=== PATIENT | male | born 1940 | race Caucasian/White ===

== ENCOUNTER → 2016-08-05 | Day surgery (SDC) | payer MEDICARE, OTHER ==
[~2016-08-05] MED LIST: ADVAIR 250/5028 PUFF INH; AMLODIPINE BESY PO; ASPIRIN 81MG TA81 MG PO; BENAZEPRIL10 MG PO; CELEBREX 200MG200 MG PO; CLINDAMYCIN HC300 MG PO; CLONAZEPAM 1MG T1 MG PO; CLOPIDOGREL75 M2; CRESTOR40 MG PO; DOXYCYCLINE HY100 MG PO; EPLERENONE25 MG PO; KEFLEX 500MG.500 MG PO; KOMBIGLYZE XR 11 TER PO; LEVAQUIN 750 M750 MG PO; LIPITOR80 MG PO; OMEPRAZOLE20 MG PO; PIOGLITAZONE HC1 TAB PO; PLAVIX75 MG PO; SOTALOL HCL80 MG PO; TIKOSYN0.25 MG PO; TORSEMIDE20 MG PO; XARELTO20 MG PO
[2016-08-05 09:30] VITALS: BP 138/70
== END ==
LOC: SDC 08:56
DX: Z53.09 Procedure and treatment not carried out because of other contraindication (principal); R10.9 Unspecified abdominal pain; E11.9 Type 2 diabetes mellitus without complications; R05 Cough

== ENCOUNTER 2016-10-07 10:57 | Day surgery (SDC) | payer MEDICARE, OTHER ==
[~2016-10-07] VITALS: Ht 177.8 cm; Wt 133.8 kg
[~2016-10-07 10:57] MED LIST changes: +DOFETILIDE125 MCG PO; -LIPITOR80 MG PO; +METFORMIN HCL1000 MG PO; -PIOGLITAZONE HC1 TAB PO; -TIKOSYN0.25 MG PO; +XARELTO15 MG PO; -XARELTO20 MG PO
--- NOTE | 2016-10-07 12:40 | Operative Note ---
Upper GI Endoscopy Procedure date: 10/07/16 Date of : 36 Procedure:Upper GI Endoscopy Esophagogastroduodenoscopy with cold biopsies Indications: Mr. Collier is a 76-year-old gentleman who is here for diagnostic panendoscopy. The patient does have iron deficiency anemia. He has pancytopenia. He has received Vee heme. He has had some dark stools but reports no bright red rectal bleeding or hematochezia. The patient has had long-standing dyspepsia. He is on Xarelto. He had prior cholecystectomy from gallstones in December 2012. He had an EGD in May 2015 showing linear gastritis. He had a colonoscopy in May 2015 showing a diminutive polyp and diverticulosis. Diagnostic panendoscopy is performed once again. Performing Provider: Dunia Garner MD Referring Provider: Elver Whaley M.D./Dr. Parisa Clemente Sedation: MAC anesthesia Procedure: Prior to the procedure, a history and physical exam was performed, and patients medications and allergies were reviewed. The risks and benefits of the procedure and the sedation options and risks were discussed with the patient. All questions were answered and informed consent was obtained. The patient was brought to the procedure room. Patient identification and proposed procedure were verified by the physician and the nurse. The patient was placed in a left lateral decubitus position and the scope was passed under direct vision. Throughout the procedure, the patient's blood pressure, pulse, and oxygen saturations were monitored continuously. The endoscope was introduced through the mouth, and advanced to the second part of duodenum. The upper GI endoscopy was accomplished without difficulty. The patient tolerated the procedure well. Findings: The scope was passed directly into the upper esophagus and advanced to the third portion of the duodenum. The post bulbar duodenum and duodenal bulb were normal with normal mucosa and conniventes. The scope was withdrawn through a normal duodenal bulb and pylorus into the stomach. There was mild linear erythema of the antrum. There was some mild chronic gastritis. The remainder of the antrum, body and fundus of the stomach were grossly normal. Upon retroflexion there was a very small sliding hiatal hernia. 2 biopsies were taken in the antrum and along the lesser curvature for histology and/or CLOtest. The scope was then withdrawn into the esophagus. There was no evidence of reflux esophagitis or Love's. There is no esophageal varices. The remainder of the esophageal mucosa was normal. Immediate complications: None EBL (ml): 0 Impression: 1. Nonerosive gastroesophageal reflux disease with mild esophageal dysmotility and very small sliding hiatal hernia 2. Mild linear reactive gastritis Recommendations: I will follow-up the biopsies. There is no source for his iron deficiency anemia. I will proceed with colonoscopy. The colonoscopy is negative for source of bleeding, I would recommend Hemoccult testing. I do feel that his iron deficiency anemia is in part related to his anticoagulation. at [id number]
--- NOTE | 2016-10-07 12:41 | Operative Note ---
Colonoscopy ([facility]) Procedure date: 10/07/16 Date of : 36 Procedure:Colonoscopy Colonoscopy with cold snare polypectomy Indications: Mr. Collier is a 76-year-old gentleman who is here for diagnostic panendoscopy. The patient does have iron deficiency anemia. He has pancytopenia. He has received Vee heme. He has had some dark stools but reports no bright red rectal bleeding or hematochezia. The patient has had long-standing dyspepsia. He is on Xarelto. He had prior cholecystectomy from gallstones in December 2012. He had an EGD in May 2015 showing linear gastritis. He had a colonoscopy in May 2015 showing a diminutive polyp and diverticulosis. Diagnostic panendoscopy is performed once again. Performing Provider: Main Garner MD Referrring Provider: Elver Whaley M.D./Dr. Mccauley Sedation: MAC sedation Procedure: Prior to the procedure, a history and physical exam was performed, and patient medications and allergies were reviewed. The risks and benefits of the procedure and the sedation options and risks were discussed with the patient. All questions were answered and informed consent was obtained. Patient identification and proposed procedure were verified by the physician and the nurse. The patient was placed in a left lateral decubitus position. Throughout the procedure, the patient's blood pressure, pulse, and oxygen saturations were monitored continuously. Findings: On digital rectal examination there was normal rectal tone. There were no external hemorrhoids. The colonoscope was introduced through the anal canal to the rectum and advanced to the cecum. The ileocecal valve and appendiceal orifice were identified. The scope was advanced a short distance into the ileum which appeared grossly normal. The scope was then withdrawn into the colon. The cecum, ascending and transverse colon and mucosa were grossly normal. There was a single 6-7 mm polyp in the descending colon removed via cold snare polypectomy. There were scattered diverticuli throughout the descending and sigmoid colon (LEFT colon). The rectum itself was normal. Upon retroflexion within the rectum there were grade 1-2 internal hemorrhoids. Impressions: 1. Descending colon polyp 2. Left-sided diverticulosis 3. Grade 1-2 internal hemorrhoids Recommendations: I will follow up the polyp histology. I'm not convinced that the patient will require any further surveillance colonoscopy. There was again no source for the patient's iron deficiency anemia. I will obtain Hemoccult testing. If the patient is Hemoccult positive, would consider video capsule enteroscopy. Complications: None EBL (ml): 0 at [id number]
[2016-10-07 15:54] VITALS: BP 114/60
--- NOTE | 2016-10-07 15:55 | Anesthesia Record ---
Anesthesia Record Part II Discharge time: 1235 Destination: Same day surgery PACU nurse assessment review? Yes Patient is: Stable Anesthesia complications? No at 1551
--- NOTE | 2016-10-07 15:55 | Anesthesia Record ---
Anesthesia Record Part I Total IV fluids: 400 EBL (ml): 0 Urine Output: 0 B/P: 114/60 % SaO2: 92 Pulse: 69 Resps: 16 Temp: 98.3 Patient is: Drowsy, Stable Stable to PACU at: 1235 (sds) at 1554
[2016-10-15] MEDS ORDERED: FLONASE 50 MCG16 GM (09:03)
[2016-10-15] MEDS ORDERED: LORATADINE 10MG10 M1 PO (09:04)
[2016-10-15] MEDS ORDERED: TERAZOSIN HCL1 MG PO (09:05)
[2016-10-15] MEDS ORDERED: BYSTOLIC2.5 MG PO (09:11)
[2016-10-15] MEDS ORDERED: ISOSORBIDE MON120 MG PO (09:12)
[2016-10-15] MEDS ORDERED: VITAMIN D1000 IU PO (09:36)
[2016-10-15] MEDS ORDERED: LEADER NATURA500 MCG PO (09:38)
[2016-10-15] MEDS ORDERED: FERROUS GLUCON324 M1 PO (09:39)
[2016-10-15] MEDS ORDERED: NITROGLYCERIN0.4 MG SL (09:40)
[2016-10-15] MEDS ORDERED: OXYGEN2 IH (09:52)
[2016-10-15] MEDS ORDERED: BREO ELLIPTA1 POW IH (09:52)
[2016-10-15] MEDS ORDERED: CLARITIN LIQUI-10 MG PO (09:54)
[2016-10-15] MEDS ORDERED: FLUTICASONE 50M16 GM (09:58)
[2016-10-15] MEDS ORDERED: PIOGLITAZONE HY PO (10:57)
[2016-10-18] MEDS ORDERED: SPIRONOLACTONE25 MG NG (17:42)
[2016-10-18] MEDS ORDERED: TORSEMIDE 20MG20 MG PO (17:42)
[2016-10-18] MEDS ORDERED: METFOMIN HYDRO850 MG PO (17:43)
== END 2016-10-07 13:50 | disposition home or self-care (01) ==
LOC: SDC 10:57
PROVIDERS: Internal Medicine Gastroenterology
PROC: 0DB68ZX Excision of Stomach, Via Natural or Artificial Opening Endoscopic, Diagnostic (ICD-10-PCS; 2016-10-07)
PROC: 0DB78ZX Excision of Stomach, Pylorus, Via Natural or Artificial Opening Endoscopic, Diagnostic (ICD-10-PCS; 2016-10-07)
PROC: 0DBM8ZX Excision of Descending Colon, Via Natural or Artificial Opening Endoscopic, Diagnostic (ICD-10-PCS; principal; 2016-10-07 12:00)
DX: K63.5 Polyp of colon (principal); K57.30 Diverticulosis of large intestine without perforation or abscess without bleeding; K64.1 Second degree hemorrhoids; K64.0 First degree hemorrhoids; K21.9 Gastro-esophageal reflux disease without esophagitis; K44.9 Diaphragmatic hernia without obstruction or gangrene; K22.4 Dyskinesia of esophagus; K29.60 Other gastritis without bleeding; E11.9 Type 2 diabetes mellitus without complications

== ENCOUNTER → 2017-03-10 | Outpatient (CLI) | payer MEDICARE, OTHER ==
[~2017-03-10] MED LIST changes: +BREO ELLIPTA1 POW IH; +BYSTOLIC2.5 MG PO; +CLARITIN LIQUI-10 MG PO; +FERROUS GLUCON324 M1 PO; +FLONASE 50 MCG16 GM; +FLUTICASONE 50M16 GM; +ISOSORBIDE MON120 MG PO; +LEADER NATURA500 MCG PO; +LORATADINE 10MG10 M1 PO; +MACROBID100 M3; +METFOMIN HYDRO850 MG PO; +NITROGLYCERIN0.4 MG SL; +OXYGEN2 IH; +PIOGLITAZONE HY PO; +SPIRONOLACTONE25 MG NG; +TERAZOSIN HCL1 MG PO; +TORSEMIDE 20MG20 MG PO; +VITAMIN D1000 IU PO
== END ==
LOC: LAB 12:00
DX: R97.20 Elevated prostate specific antigen [PSA] (principal); Z12.5 Encounter for screening for malignant neoplasm of prostate

== ENCOUNTER → 2017-04-21 | Outpatient (CLI) | payer MEDICARE, OTHER ==
[2017-04-21 13:00] LABS: BUN 21 mg/dL (7-18)
[2017-04-21 13:01] LABS: GFR (ESTIMATED) 42 ML/MIN (>60)
== END ==
LOC: LAB 09:10
PROVIDERS: Family Medicine
DX: I10 Essential (primary) hypertension (principal); E78.5 Hyperlipidemia, unspecified; E11.9 Type 2 diabetes mellitus without complications; R97.20 Elevated prostate specific antigen [PSA]